=== PATIENT | female | born 1975 | race African-American/Black ===

== ENCOUNTER 2018-01-09 16:17 | Emergency (ER) | payer BC, MEDICAID ==
[~2018-01-09] VITALS: Ht 162.6 cm; Wt 73.0 kg
[2018-01-09 18:30] LABS: EOSINOPHILS % 2.5 % (0.0-5.0); HEMATOCRIT. 40.1 % (36.0-48.0); HEMOGLOBIN. 13.4 g/dL (12.0-16.0); LYMPHOCYTES % 38.9 % (20.0-50.0); MEAN CORPUSCULAR HEMOGLOBIN 27.1 pg (28.0-32.0); MEAN CORPUSCULAR VOLUME 80.8 fL (81.0-99.0); MEAN PLATELET VOLUME 9.8 fl (7.4-10.4); MONOCYTES % 6.3 % (2.0-8.0); NEUTROPHILS % 51.3 % (40.0-76.0); PLATELET 184 x1000/uL (130-400); RED BLOOD CELL COUNT 4.96 mill/uL (4.2-5.4); RED CELL DISTRIBUTION WIDTH 13.5 % (11.6-14.6)
[2018-01-09 18:32] LABS: CHLORIDE 103 mEq/L (98-107)
[2018-01-09 19:33] LABS: CLARITY URINE CLOUDY (CLEAR); COLOR URINE YELLOW (YELLOW); KETONES URINE NEGATIVE (NEGATIVE); LEUKOCYTE ESTERASE URINE 1+ (NEGATIVE); NITRITE URINE NEGATIVE (NEGATIVE); OCCULT BLOOD URINE 3+ (NEGATIVE); PROTEIN URINE NEGATIVE (NEGATIVE); SPECIFIC GRAVITY URINE 1.023 (1.005-1.030); UROBILINOGEN URINE 0.2 E.U./dL (0.2-1.0)
[2018-01-09 20:13] LABS: B-HCG QUANTITATIVE 17123 mIU/mL (<3)
[2018-01-09 20:31] VITALS: BP 121/72
== END 2018-01-09 21:28 | disposition home or self-care (01) ==
LOC: ER 17:49
DX: O20.0 Threatened abortion (principal); O23.41 Unspecified infection of urinary tract in pregnancy, first trimester; O99.331 Smoking (tobacco) complicating pregnancy, first trimester; F17.200 Nicotine dependence, unspecified, uncomplicated; Z88.6 Allergy status to analgesic agent; Z3A.09 9 weeks gestation of pregnancy
CPT/HCPCS: 36415; 76830; 76856; 80053; 81003; 81025; 84702; 85025; 86850; 86900; 86901; 99285; Z7610

== ENCOUNTER 2018-01-15 08:04 | Emergency (ER) | payer MEDICAID ==
[~2018-01-15] VITALS: Ht 162.6 cm; Wt 73.0 kg
[2018-01-15 08:25] VITALS: BP 135/87
== END 2018-01-15 14:22 | disposition left against medical advice (07) ==
LOC: ER 09:16
DX: N93.9 Abnormal uterine and vaginal bleeding, unspecified (principal); Z53.21 Procedure and treatment not carried out due to patient leaving prior to being seen by health care provider

== ENCOUNTER 2018-06-08 06:39 | Emergency (ER) | payer MEDICAID ==
[~2018-06-08] VITALS: Ht 162.6 cm; Wt 78.0 kg
[2018-06-08 07:55] LABS: CLARITY URINE CLOUDY (CLEAR); COLOR URINE YELLOW (YELLOW); KETONES URINE NEGATIVE (NEGATIVE); LEUKOCYTE ESTERASE URINE 3+ (NEGATIVE); NITRITE URINE POSITIVE (NEGATIVE); OCCULT BLOOD URINE 3+ (NEGATIVE); PROTEIN URINE 1+ (NEGATIVE); SPECIFIC GRAVITY URINE 1.019 (1.005-1.030); UROBILINOGEN URINE 0.2 E.U./dL (0.2-1.0)
[2018-06-08 08:39] VITALS: BP 134/90
== END 2018-06-08 08:41 | disposition home or self-care (01) ==
LOC: ER 06:39
DX: N39.0 Urinary tract infection, site not specified (principal); F17.200 Nicotine dependence, unspecified, uncomplicated; Z88.6 Allergy status to analgesic agent
CPT/HCPCS: 81003; 81025; 87077; 87086; 87186; 99284

== ENCOUNTER 2018-09-07 00:30 | Emergency (ER) | payer MEDICAID ==
[~2018-09-07] VITALS: Ht 162.6 cm; Wt 73.0 kg
[2018-09-07] MEDS ORDERED: SODIUM CHLORIDE 0.9% 1,000 ML IV ONE (03:50)
[2018-09-07] MEDS ORDERED: KETOROLAC 30MG/ML VIAL IV ONE (04:00)
[2018-09-07 04:16] LABS: BASOPHILS % 0.5 % (0.0-2.0); CHLORIDE 107 mEq/L (98-107); EOSINOPHILS % 1.7 % (0.0-5.0); HEMATOCRIT. 37.4 % (36.0-48.0); HEMOGLOBIN. 12.5 g/dL (12.0-16.0); LYMPHOCYTES % 27.8 % (20.0-50.0); MEAN CORPUSCULAR HEMOGLOBIN 27.4 pg (28.0-32.0); MEAN CORPUSCULAR VOLUME 81.7 fL (81.0-99.0); MEAN PLATELET VOLUME 9.6 fl (7.4-10.4); MONOCYTES % 6.5 % (2.0-8.0); NEUTROPHILS % 63.5 % (40.0-76.0); PLATELET 162 x1000/uL (130-400); RED BLOOD CELL COUNT 4.58 mill/uL (4.2-5.4); RED CELL DISTRIBUTION WIDTH 13.6 % (11.6-14.6)
[2018-09-07 04:26] LABS: B-HCG QUANTITATIVE 102 mIU/mL (<3)
[2018-09-07 05:03] LABS: CLARITY URINE TURBID (CLEAR); COLOR URINE YELLOW (YELLOW); KETONES URINE 1+ (NEGATIVE); LEUKOCYTE ESTERASE URINE NEGATIVE (NEGATIVE); NITRITE URINE NEGATIVE (NEGATIVE); OCCULT BLOOD URINE 3+ (NEGATIVE); PH URINE 6.5 (4.5-8.0); PROTEIN URINE NEGATIVE (NEGATIVE); SPECIFIC GRAVITY URINE 1.019 (1.005-1.030)
[2018-09-07 06:00] VITALS: BP 140/81
== END 2018-09-07 06:01 | disposition home or self-care (01) ==
LOC: ER 00:30
DX: O03.9 Complete or unspecified spontaneous abortion without complication (principal); Z3A.13 13 weeks gestation of pregnancy; Z88.6 Allergy status to analgesic agent
CPT/HCPCS: 36415; 76801; 76817; 80053; 81003; 81025; 84702; 85025; 86850; 86900; 86901; 96374; 99284; J1885; J7030

== ENCOUNTER 2023-08-24 09:10 | Emergency (ER) | payer MEDICAID ==
[~2023-08-24] VITALS: Ht 165.1 cm; Wt 91.0 kg
[2023-08-24 09:32] VITALS: O2SAT 97
[2023-08-24] MEDS ORDERED: CEPHALEXIN 250MG CAPSULE PO ONE (09:45)
[2023-08-24] MEDS ORDERED: SULFAMETHOXAZOLE/TRIMETHOPRIM 800/160MG TABLET PO ONE (09:45)
[2023-08-24] MEDS ORDERED: SULF1TAB48 MT (09:45)
[2023-08-24] MEDS ORDERED: CEPH500C2 MT (09:45)
[2023-08-24 10:28] VITALS: BP 128/86; PULSE 76; RESP 19; TEMP 98.4
== END 2023-08-24 10:29 | disposition home or self-care (01) ==
LOC: ER 09:10
DX: L02.413 Cutaneous abscess of right upper limb (principal); Z88.6 Allergy status to analgesic agent
CPT/HCPCS: 87070; 87077; 87186; 99283

== ENCOUNTER 2024-12-13 21:36 | Emergency (ER) | payer MEDICAID, OTHER ==
[~2024-12-13 21:36] MED LIST: CEPH500C2 MT; SULF1TAB48 MT
[2024-12-13 21:37] VITALS: PULSE 99; RESP 20; O2SAT 99
[2024-12-14] MEDS ORDERED: IBUPROFEN 600MG TABLET PO ONE (00:30)
[2024-12-14] MEDS ORDERED: CYCL10TA21 MT (02:07)
[2024-12-14] MEDS ORDERED: IBUP-2029 MT (02:07)
== END 2024-12-14 02:42 | disposition home or self-care (01) ==
LOC: ER 21:36
DX: M25.512 Pain in left shoulder (principal); V49.9XXA Car occupant (driver) (passenger) injured in unspecified traffic accident, initial encounter; Y93.89 Activity, other specified; Y92.89 Other specified places as the place of occurrence of the external cause; Y99.8 Other external cause status
CPT/HCPCS: 73030; 99283; A4565